=== PATIENT | male | born 1970 | race Caucasian/White ===

== ENCOUNTER 2021-12-16 08:42 | Day surgery (SDC) | payer OTHER ==
[2021-12-16 09:00] VITALS: BMI 28.2
[2021-12-16] MEDS ORDERED: BUPIVACAINE HCL/PF 2.5 MG/ML - 30 ML VIAL IJ ONE (11:09)
[2021-12-16] MEDS ORDERED: PROPOFOL 20 ML ONE (11:13)
[2021-12-16] MEDS ORDERED: MIDAZOLAM HCL 2 MG/2 ML SINGLE DOSE VIAL ONE (11:13)
[2021-12-16] MEDS ORDERED: ONDANSETRON 4 MG/2 ML VIAL ONE (11:30)
[2021-12-16] MEDS ORDERED: ceFAZolin SODIUM 1 GM VIAL ONE (11:30)
[2021-12-16] MEDS ORDERED: DEXAMETHASONE SOD PHOSPHATE 4 MG/1 ML VIAL ONE (11:30)
[2021-12-16] MEDS ORDERED: KETOROLAC TROMETHAMINE 30 MG/1 ML VIAL ONE (11:30)
[2021-12-16] MEDS ORDERED: oxyCODONE HCL 5 MG TABLET PO PRN ×2 (12:18)
[2021-12-16] MEDS ORDERED: PROMETHAZINE HCL 25 MG/1 ML VIAL IVPUSH PRN (12:18)
[2021-12-16] MEDS ORDERED: ONDANSETRON 4 MG/2 ML VIAL IVPUSH PRN (12:18)
[2021-12-16 12:34] VITALS: TEMP 97.8
[2021-12-16 12:58] VITALS: PULSE 70
[2021-12-16 13:23] VITALS: BP 130/87
== END 2021-12-16 13:43 | disposition home or self-care (01) ==
LOC: FASU 08:42
PROVIDERS: ATTEND Orthopaedic Surgery
PROC: 0SBD4ZZ Excision of Left Knee Joint, Percutaneous Endoscopic Approach (ICD-10-PCS; 2021-12-16)
PROC: 0SBD4ZZ Excision of Left Knee Joint, Percutaneous Endoscopic Approach (ICD-10-PCS; principal; 2021-12-16 11:49)
DX: S83.242A Other tear of medial meniscus, current injury, left knee, initial encounter (principal); S83.282A Other tear of lateral meniscus, current injury, left knee, initial encounter; S83.8X2A Sprain of other specified parts of left knee, initial encounter; M65.862 Other synovitis and tenosynovitis, left lower leg; X58.XXXA Exposure to other specified factors, initial encounter; Y93.9 Activity, unspecified; Y92.9 Unspecified place or not applicable
CPT/HCPCS: 94760